=== PATIENT | female | born 1965 | race Caucasian/White ===

== ENCOUNTER 2019-06-25 06:40 | Inpatient (IN) ==
--- NOTE | 2019-05-22 09:28 | PAT Medication Instructions ---
Medication Instructions Date of Service May 22, 2019 Home Medications Probiotic 1 cap PO QPM 05/19/19 [History Confirmed 05/19/19] acetaminophen [Tylenol Extra Strength] 500 mg PO Q6H PRN cyclobenzaprine 1 dose PO DAILY PRN 05/19/19 [History Confirmed 05/19/19] duloxetine 60 mg PO HS 05/19/19 [History Confirmed 05/19/19] etodolac 400 mg PO BID 05/19/19 [History Confirmed 05/19/19] gabapentin 300 mg PO TID 05/19/19 [History Confirmed 05/19/19] losartan-hydrochlorothiazide 1 tab PO QAM 05/19/19 [History Confirmed 05/19/19] pantoprazole 20 mg PO Q OTHER DAY 05/19/19 [History Confirmed 05/19/19] simvastatin 20 mg PO PM 05/19/19 [History Confirmed 05/19/19] ASK your surgeon for instructions etodolac 400 mg PO BID 05/19/19 [History Confirmed 05/19/19] DO NOT take the morning of surgery cyclobenzaprine 1 dose PO DAILY PRN 05/19/19 [History Confirmed 05/19/19] losartan-hydrochlorothiazide 1 tab PO QAM 05/19/19 [History Confirmed 05/19/19] Take morning of surgery With a small sip of water, OTHERWISE NOTHING TO EAT OR DRINK AFTER MIDNIGHT: acetaminophen [Tylenol Extra Strength] 500 mg PO Q6H PRN (okay to take up to 4 hours prior to surgery if needed) gabapentin 300 mg PO TID 05/19/19 [History Confirmed 05/19/19] pantoprazole 20 mg PO Q OTHER DAY (if scheduled to take day of surgery) Take evening before surgery Probiotic 1 cap PO QPM 05/19/19 [History Confirmed 05/19/19] acetaminophen [Tylenol Extra Strength] 500 mg PO Q6H PRN (if needed) cyclobenzaprine 1 dose PO DAILY PRN (if needed) duloxetine 60 mg PO HS 05/19/19 [History Confirmed 05/19/19] gabapentin 300 mg PO TID 05/19/19 [History Confirmed 05/19/19] simvastatin 20 mg PO PM 05/19/19 [History Confirmed 05/19/19] Other Notes If you have any questions please call us at [phone] or [phone] or [phone] or [phone]
--- NOTE | 2019-05-25 11:34 | Anesthesiology Consultation ---
Date of Service May 25, 2019 Assessment & Plan (1) Encounter for pre-operative examination: Chart Review Chart Review: Pending: Refer to Additional Notes / Consult section (pending preop testing (labs, EKG, CXR)) and Patient seen in Pre Admission Testing Teaching & Discussion Pre-Anesthesia Teaching/Discussion Notes: Instructed NPO after midnight before surgery,except medications with 15 cc of water. Medication instructions provi ded according to the PAT guidelines. History Surgery Operation Date: 06/25/19 08:50 Proposed Procedures p Right Total Knee Arthroplasty - Héctor Morillo MD Height/Weight Height: 5 ft 6 in Weight: 112.2 kg Allergies Allergy/AdvReac Type Severity Reaction Status Date / Time latex Allergy Rash Verified 05/19/19 15:42 No Known Drug Allergies Allergy Verified 05/19/19 15:42 Medications Home Medications Medication Instructions Recorded Confirmed Last Taken Probiotic 1 cap PO QPM 05/19/19 05/19/19 Unknown acetaminophen [Tylenol Extra 500 mg PO Q6H PRN 05/19/19 05/19/19 Unknown Strength] cyclobenzaprine 1 dose PO DAILY PRN 05/19/19 05/19/19 Unknown duloxetine 60 mg PO HS 05/19/19 05/19/19 Unknown etodolac 400 mg PO BID 05/19/19 05/19/19 Unknown gabapentin 300 mg PO TID 05/19/19 05/19/19 Unknown losartan-hydrochlorothiazide 1 tab PO QAM 05/19/19 05/19/19 Unknown pantoprazole 20 mg PO Q OTHER DAY 05/19/19 05/19/19 Unknown simvastatin 20 mg PO PM 05/19/19 05/19/19 Unknown Past Medical History Medical History Acid reflux controlled Degenerative disc disease Fibromyalgia History of angiography History of subarachnoid hemorrhage 2001 - no surgery/no residual effects Hyperlipidemia Hypertension Obesity Osteoarthritis Spinal stenosis Urinary leakage mild since childbirth Exercise / Class Metabolic Activity II 4-5 Yardwork/Stairs/Walk up hill (one flight of stairs (no chest pain/no sob)) Past Family History Family History Mother Family history of diabetes mellitus Uncle Family history of diabetes mellitus Past Surgical History Surgical History History of ankle surgery PLASMA INJECTION W/ ANESTHESIA History of appendectomy History of colonoscopy History of esophagogastroduodenoscopy (EGD) History of toe surgery Sebaceous cyst REMOVED Past Anesthesia History No Hx of Anesthesia Complications and No Family Hx of Anesthesia Complications History of PONV No Hx of PONV and Hx of Motion Sickness (occasional) Social History Smoking Status: Never smoker Do You Dip or Chew Tobacco: No Hx Alcohol Use: No Hx Substance Use: No substance use type: does not use Review of Systems Reflux controlled. Patient denies chest pain, shortness of breath, dyspnea on exertion, cough, wheezing, palpitations. Physical Exam Vital Signs VITALS BP 117/79 P 73 TEMP 98.3 SP02 95%RA RESP 16 PHYSICAL Full neck and c-spine range of motion. Full TMJ range of motion. TMD 4 finger breaths Mallampati Score 1 Dentition: lower sides missing, crown on side Lungs: clear throughout to auscultation Cardiac: regular rate and rhythm, no murmurs noted Spine: normal Carotid arteries: negative bruit Extremities: no edema
--- NOTE | 2019-05-25 12:33 | XRay Report ---
TWO VIEW CHEST CLINICAL HISTORY: Preoperative examination. FINDINGS: PA and lateral chest radiographs are obtained. No prior studies are available for compariso n at the time of dictation. The cardiomediastinal silhouette is unremarkable. The lungs and pleural spaces are clear. There is no pneumothorax. The bony thorax appears intact. Degenerative change is n oted in the thoracic spine. IMPRESSION: No active disease in the chest. Electronically signed by: Naveen Ng M.D. 05/25/2019 12:31 PM
[2019-05-25 13:33] LABS: Basophils # (auto) 0.03 K/uL (0-0.2); Basophils % (auto) 0.4 %; Eosinophils # (auto) 0.19 K/uL (0-0.5); Eosinophils % (auto) 2.7 %; Hematocrit (blood only) 38.5 % (37-47); Immature Granulocytes # (auto) 0.01 K/uL (0.00-0.02); Immature Granulocytes % (auto) 0.1 %; Lymphocytes # (auto) 2.01 K/uL (1.2-3.4); Lymphocytes % (auto) 28.8 %; Mean Corpuscular Hemoglobin 28.2 pg (25-34); Mean Corpuscular Hgb Conc 33.8 g/dL (32-36); Mean Corpuscular Volume 83.5 fL (80-100); Mean Platelet Volume 9.4 fL (7.4-10.4); Monocytes # (auto) 0.52 K/uL (0.11-0.59); Monocytes % (auto) 7.5 %; Neutrophils # (auto) 4.21 K/uL (1.4-6.5); Neutrophils % (auto) 60.5 %; Platelet Count 312 K/uL (130-400); RDW Standard Deviation 42.2 fL (36.4-46.3); Red Blood Count 4.61 M/uL (4.2-5.4); White Blood Count 6.97 K/uL (4.8-10.8)
[2019-05-25 13:42] LABS: Albumin Level 3.8 gm/dl (3.4-5.0); BUN Creatinine Ratio 20.2 (10-20); Calcium 9.4 mg/dl (8.5-10.1); Creatinine Clr Calc Pharmacy 123.8 ml/min; Est GFR (African American) 116.1; Est GFR (Non-African American) 100.1; Potassium 3.6 mmol/L (3.5-5.1)
[2019-05-25 13:47] LABS: Partial Thromboplastin Ratio 1.2; Prothrombin Time 10.2 Seconds (9.0-12.0)
[2019-05-25 13:48] LABS: Estimated Average Glucose 134 mg/dl; Hemoglobin A1C 6.3 % (4.5-5.6)
[2019-05-25 13:54] LABS: Appearance Urine Clear (Clear); Blood Urine Negative (Negative); Color Urine Yellow; Glucose Urine UA Negative (Negative); Ketones Urine Negative (Negative); Leukocyte Esterase Urine Negative (Negative); Nitrite Urine Negative (Negative); Protein Urine Negative (Negative); Specific Gravity Urine <= 1.005 (1.000-1.030); Urobilinogen Urine Negative (Negative); pH Urine 5.5 (4.5-7.5)
[2019-05-25 14:00] LABS: Bilirubin Urine Negative (Negative); Ictotest Urine Negative (Negative)
--- NOTE | 2019-05-31 18:52 | History & Physical Report ---
Date of Service May 31, 2019 Assessment & Plan (1) Primary osteoarthritis of right knee: Treatment options were discussed. She was able to get BMI down below 40. She has failed conservative measures as above. Risks, benefits and alternatives to surgery including but not limited to infection, DVT, pain, stiffness, need for revision surgery, damage to blood vessels, damage to nerves, PE, , were discussed with the patient and they wish to proceed. Plan will be for right total knee arthroplasty on 06/25/19 at [facility]. Will plan on aspirin 81mg BID x 1 mo post op for DVT prophylaxis. She will plan on HHPT. All questions answered. F/u post operatively. History of Present Illness Primary Care Provider: Kyung CasillasFausto Nakia 54 year old female with PMHx significant for HTN, high cholesterol, obesity, subarachnoid hemorrhage, OA, fibromyalgia presents with ongoing right knee pain. She has failed conservative measures including injections and anti-inflammatory medications. She continues to have pain and difficulty with daily activity. She would like to proceed with right knee replacement. Patient denies headaches, sweats, fevers, chills, double vision, blurred vision, cough, sore throat, dysphagia, chest pain, sob, wheezing, n/v/d/c, numbness, tingling, fatigue, urinary symptoms, mood disorders. ROS positive for right knee pain and stiffness. Allergies Allergy/AdvReac Type Severity Reaction Status Date / Time latex Allergy Rash Verified 05/19/19 15:42 No Known Drug Allergies Allergy Verified 05/19/19 15:42 Home Medications Home Medications Medication Instructions Recorded Confirmed Type Probiotic 1 cap PO QPM 05/19/19 05/19/19 History acetaminophen [Tylenol Extra 500 mg PO Q6H PRN 05/19/19 05/19/19 History Strength] cyclobenzaprine 1 dose PO DAILY PRN 05/19/19 05/19/19 History duloxetine 60 mg PO HS 05/19/19 05/19/19 History etodolac 400 mg PO BID 05/19/19 05/19/19 History gabapentin 300 mg PO TID 05/19/19 05/19/19 History losartan-hydrochlorothiazide 1 tab PO QAM 05/19/19 05/19/19 History pantoprazole 20 mg PO Q OTHER DAY 05/19/19 05/19/19 History simvastatin 20 mg PO PM 05/19/19 05/19/19 History Past Med/Surg History Medical History Acid reflux controlled Degenerative disc disease Fibromyalgia History of angiography History of subarachnoid hemorrhage 2001 - no surgery/no residual effects Hyperlipidemia Hypertension Obesity Osteoarthritis Spinal stenosis Urinary leakage mild since childbirth Surgical History History of ankle surgery PLASMA INJECTION W/ ANESTHESIA History of appendectomy History of colonoscopy History of esophagogastroduodenoscopy (EGD) History of toe surgery Sebaceous cyst REMOVED Family History Mother Family history of diabetes mellitus Uncle Family history of diabetes mellitus Social History Preferred Language: [place]uran Communication Ability: Effective Escalator Operator Required: No Beliefs That Will Affect Care: None Current Living Situation: Spouse Other Information That Helps Us Care for You: No Feels Safe at Home: Yes Safety Concerns: Feels Safe At This Time Smoking Status: Never smoker Do You Dip or Chew Tobacco: No ; Second Hand Exposure: Yes ( A CHILD) ; Hx Alcohol Use: No Hx Substance Use: No Review of Systems All systems reviewed & are unremarkable except as noted in HPI & below Physical Exam Constitutional: well developed and well nourished; no acute distress Eyes: PERRL, conjunctivae normal, anicteric sclerae ENMT: external ear and nose normal, oropharynx normal Neck: trachea midline, no thyromegaly Respiratory: normal respiratory effort, lungs clear to auscultation Cardiovascular: RRR, no murmur, no edema Musculoskeletal: Right knee: Tenderness anteromedial aspect and medial joint line. Crepitus with ROM. ROM 0-130. Stable to valgus and varus stress. Positive Elise's Skin: no rashes, warm and dry Neurologic: patellar DTR's 2+ bilat, sensation intact Psychiatric: A+Ox3, euthymic affect Results & Data Laboratory Results Lab Results 05/25/19 05/25/19 05/25/19 Range/Units 11:53 11:53 11:53 WBC 6.97 (4.8-10.8) K/uL RBC 4.61 (4.2-5.4) M/uL Hgb 13.0 (12.0-16.0) g/dL Hct 38.5 (37-47) % MCV 83.5 (80-100) fL MCH 28.2 (25-34) pg MCHC 33.8 (32-36) g/dL RDW Std Deviation 42.2 (36.4-46.3) fL RDW Coeff of [place] 14.0 (11.5-14.5) % Plt Count 312 (130-400) K/uL MPV 9.4 (7.4-10.4) fL Immature Gran % (Auto) 0.1 % Neut % (Auto) 60.5 % Lymph % (Auto) 28.8 % [place] % (Auto) 7.5 % Eos % (Auto) 2.7 % Baso % (Auto) 0.4 % Immature Gran # (Auto) 0.01 (0.00-0.02) K/uL Neut # (Auto) 4.21 (1.4-6.5) K/uL Lymph # (Auto) 2.01 (1.2-3.4) K/uL [place] # (Auto) 0.52 (0.11-0.59) K/uL Eos # (Auto) 0.19 (0-0.5) K/uL Baso # (Auto) 0.03 (0-0.2) K/uL PT (9.0-12.0) Seconds INR (0.9-1.1) APTT (21.0-31.0) Seconds PTT Ratio Sodium 138 (136-145) mmol/L Potassium 3.6 (3.5-5.1) mmol/L Chloride 105 (98-107) mmol/L Carbon Dioxide 25 (21-32) mmol/L Anion Gap 8.0 (3-11) BUN 13 (7-18) mg/dl Creatinine 0.66 (0.6-1.2) mg/dl Est Cr Clr Drug Dosing 123.8 ml/min Est GFR ( Amer) 116.1 Est GFR (Non-Af Amer) 100.1 BUN/Creatinine Ratio 20.2 H (10-20) Glucose 95 (70-99) mg/dl Estimat Average Glucose mg/dl Hemoglobin A1c (4.5-5.6) % Calcium 9.4 (8.5-10.1) mg/dl Albumin 3.8 (3.4-5.0) gm/dl Urine Color Yellow Urine Appearance Clear (Clear) Urine pH 5.5 (4.5-7.5) Ur Specific [place] <= 1.005 (1.000-1.030) Urine Protein Negative (Negative) Urine Glucose (UA) Negative (Negative) Urine Ketones Negative (Negative) Urine Blood Negative (Negative) Urine Nitrite Negative (Negative) Urine Bilirubin Negative (Negative) Urine Urobilinogen Negative (Negative) Ur Leukocyte Esterase Negative (Negative) Blood Type Antibody Screen 05/25/19 05/25/19 05/25/19 Range/Units 11:53 11:53 11:53 WBC (4.8-10.8) K/uL RBC (4.2-5.4) M/uL Hgb (12.0-16.0) g/dL Hct (37-47) % MCV (80-100) fL MCH (25-34) pg MCHC (32-36) g/dL RDW Std Deviation (36.4-46.3) fL RDW Coeff of [place] (11.5-14.5) % Plt Count (130-400) K/uL MPV (7.4-10.4) fL Immature Gran % (Auto) % Neut % (Auto) % Lymph % (Auto) % [place] % (Auto) % Eos % (Auto) % Baso % (Auto) % Immature Gran # (Auto) (0.00-0.02) K/uL Neut # (Auto) (1.4-6.5) K/uL Lymph # (Auto) (1.2-3.4) K/uL [place] # (Auto) (0.11-0.59) K/uL Eos # (Auto) (0-0.5) K/uL Baso # (Auto) (0-0.2) K/uL PT 10.2 (9.0-12.0) Seconds INR 1.0 (0.9-1.1) APTT 32.0 H (21.0-31.0) Seconds PTT Ratio 1.2 Sodium (136-145) mmol/L Potassium (3.5-5.1) mmol/L Chloride (98-107) mmol/L Carbon Dioxide (21-32) mmol/L Anion Gap (3-11) BUN (7-18) mg/dl Creatinine (0.6-1.2) mg/dl Est Cr Clr Drug Dosing ml/min Est GFR ( Amer) Est GFR (Non-Af Amer) BUN/Creatinine Ratio (10-20) Glucose (70-99) mg/dl Estimat Average Glucose 134 mg/dl Hemoglobin A1c 6.3 H (4.5-5.6) % Calcium (8.5-10.1) mg/dl Albumin (3.4-5.0) gm/dl Urine Color Urine Appearance (Clear) Urine pH (4.5-7.5) Ur Specific [place] (1.000-1.030) Urine Protein (Negative) Urine Glucose (UA) (Negative) Urine Ketones (Negative) Urine Blood (Negative) Urine Nitrite (Negative) Urine Bilirubin (Negative) Urine Urobilinogen (Negative) Ur Leukocyte Esterase (Negative) Blood Type AB Positive Antibody Screen NEGATIVE Diagnostic Findings Right knee: [id number] PF compartment with arthritic change medially and laterally with periarticular osteophyte formation
--- NOTE | 2019-06-23 12:47 | Anesthesiology Consultation ---
Date of Service June 23, 2019 Assessment & Plan (1) Encounter for pre-operative examination: Chart Review Chart Review: Acceptable Risk for Surgery Consults Requested none History Surgery Operation Date: 06/25/19 08:30 Proposed Procedures p Right Total Knee Arthroplasty - Héctor Morillo MD Height/Weight Height: 5 ft 6 in Weight: 112.2 kg Allergies Allergy/AdvReac Type Severity Reaction Status Date / Time latex Allergy Rash Verified 05/19/19 15:42 No Known Drug Allergies Allergy Verified 05/19/19 15:42 Medications Home Medications Medication Instructions Recorded Confirmed Last Taken Probiotic 1 cap PO QPM 05/19/19 05/19/19 Unknown acetaminophen [Tylenol Extra 500 mg PO Q6H PRN 05/19/19 05/19/19 Unknown Strength] cyclobenzaprine 1 dose PO DAILY PRN 05/19/19 05/19/19 Unknown duloxetine 60 mg PO HS 05/19/19 05/19/19 Unknown etodolac 400 mg PO BID 05/19/19 05/19/19 Unknown gabapentin 300 mg PO TID 05/19/19 05/19/19 Unknown losartan-hydrochlorothiazide 1 tab PO QAM 05/19/19 05/19/19 Unknown pantoprazole 20 mg PO Q OTHER DAY 05/19/19 05/19/19 Unknown simvastatin 20 mg PO PM 05/19/19 05/19/19 Unknown Past Medical History Medical History Acid reflux controlled Degenerative disc disease Fibromyalgia History of angiography History of subarachnoid hemorrhage 2001 - no surgery/no residual effects Hyperlipidemia Hypertension Obesity Osteoarthritis Spinal stenosis Urinary leakage mild since childbirth Past Family History Family History Mother Family history of diabetes mellitus Uncle Family history of diabetes mellitus Past Surgical History Surgical History History of ankle surgery PLASMA INJECTION W/ ANESTHESIA History of appendectomy History of colonoscopy History of esophagogastroduodenoscopy (EGD) History of toe surgery Sebaceous cyst REMOVED Social History Smoking Status: Never smoker Do You Dip or Chew Tobacco: No Hx Alcohol Use: No Hx Substance Use: No substance use type: does not use Testing Laboratory Results 05/25/19 11:53 05/25/19 11:53 PT 10.2 Seconds (9.0-12.0) 05/25/19 11:53 INR 1.0 (0.9-1.1) 05/25/19 11:53 APTT 32.0 Seconds (21.0-31.0) H 05/25/19 11:53 Hemoglobin A1c 6.3 % (4.5-5.6) H 05/25/19 11:53 Urine Color Yellow 05/25/19 11:53 Urine Appearance Clear (Clear) 05/25/19 11:53 Urine pH 5.5 (4.5-7.5) 05/25/19 11:53 Ur Specific [place] <= 1.005 (1.000-1.030) 05/25/19 11:53 Urine Protein Negative (Negative) 05/25/19 11:53 Urine Glucose (UA) Negative (Negative) 05/25/19 11:53 Urine Ketones Negative (Negative) 05/25/19 11:53 Urine Nitrite Negative (Negative) 05/25/19 11:53 Ur Leukocyte Esterase Negative (Negative) 05/25/19 11:53 Blood Type AB Positive 05/25/19 11:53 Antibody Screen NEGATIVE 05/25/19 11:53 05/25/19 11:53 Urine Culture - Final Urine,Clean Catch More than three types of organisms present, all high counts mixed probable skin emily - No further identifications or sensitivities to follow. Electrocardiogram Date: 05/25/19 Findings: + NSR @ (78/min) Chest X-Ray Date: 05/25/19 Findings: + NAD
[~2019-06-25 06:40] MED LIST: ACETAMINOPHEN 500 MG TAB PO SCH; BUPIVACAINE 0.5 % 5 MG/1 ML PF 10ML VIAL ONE; CEFAZOLIN 2000MG 2,000 MG/15 ML SYR IV SCH; CeleBREX 200 MG CAP PO SCH; FAMOTIDINE 20 MG TAB PO SCH; GABAPENTIN 900 MG DOSE PO SCH; LR 500ML BOLUS, THEN 15ML/HR IV SCH; MISSING PHYSICIAN SIGNATURE ON ORDER SCH; ROPIVACAINE 0.5% 5 MG/ML 30 ML VIAL ONE; TRANEXAMIC ACID 1,000 MG **IV Intra-op IV SCH; TRANEXAMIC ACID 1,000 MG **IV Pre-op IV SCH; dexAMETHasone 4 MG TAB PO SCH
--- NOTE | 2019-06-25 06:54 | History & Physical Bridge Note ---
Date of Service June 25, 2019 History & Physical Bridge Note I have examined the patient, reviewed the History & Physical and in the interval since the performance of the History & Physical I have noted the following changes of clinical significance: no changes noted
[2019-06-25] MEDS ORDERED: MIDAZOLAM HCL 1 MG/ML 2ML VIAL ONE ×3 (06:56→08:32)
[2019-06-25] MEDS ORDERED: PROPOFOL IV EMULSION 10 MG/ML 20 ML VIAL IV ONE ×3 (06:56→09:39)
[2019-06-25] MEDS ORDERED: fentaNYL citrate 100 MCG/2 ML VIAL ONE (06:56)
[2019-06-25] MEDS ORDERED: LIDOCAINE HCL 2% 2 ML VIAL/AMP(20MG/ML) INFIL ONE (06:56)
[2019-06-25] MEDS ORDERED: ONDANSETRON INJ 2 MG/ML 2 ML VIAL ONE (06:56)
[2019-06-25] MEDS ORDERED: BACITRACIN INJ 50,000 UNIT VIAL ONE (07:17)
[2019-06-25] MEDS ORDERED: ORTHO JOINT ANESTHETIC ONE (07:17)
[2019-06-25] MEDS ORDERED: HYDROmorphone INJ 2 MG/ML SYR/VIAL IV PRN (08:12)
[2019-06-25] MEDS ORDERED: ePHEDrine sulfate 50 MG/ML AMP IV PRN (08:12)
[2019-06-25] MEDS ORDERED: ATROPINE SULFATE 0.1 MG/ML 10ML SYR IV PRN (08:12)
[2019-06-25] MEDS ORDERED: fentaNYL citrate 100 MCG/2 ML VIAL IV PRN (08:12)
[2019-06-25] MEDS ORDERED: ROPIVACAINE 0.5% HCL/PF 150 MG, BUPIVACAINE 0.5% MPF 30 ML, EPINEPHrine 30MG/30ML (OR U... INFIL SCH (08:45)
--- NOTE | 2019-06-25 10:12 | Operative Report ---
Post Operative Report Pre & Post Diagnosis Operation Date: 06/25/19 08:30 Pre-Op Diagnosis: Right Knee Unilateral Primary Osteoarthritis Post-Op Diagnosis: Right Knee Unilateral Primary Osteoarthritis I identified the patient and participated in the time-out.: Yes Procedure Operation Date: 06/25/19 08:30 Actual Procedures p Right Total Knee Arthroplasty(Right) - Héctor Morillo MD Surgeon Héctor Morillo MD Mixing Picker Tender Stephen Momin PA-C Estimated Blood Loss 20 Findings Consistent with Post-Op Diagnosis Specimens Bone and tissue Drains 2 Hemovac Anesthesia Type MAC Spinal Regional Complications none Disposition Accompanied Patient To Recovery: No Disposition: Recovery Room Indications The patient is a 54-year-old female longstanding arthritic change in the knee. She has [id number] patellofemoral compartment with significant joint space narrowing the medial compartment. She is failed conservative measures including injection, anti-inflammatories and rehab. She wishes to proceed with a right total knee arthroplasty. Description of Procedure Risks benefits and alternatives of surgery including but not limited to infection, DVT, pain, stiffness, need for surgery, damage to blood vessels, damage to nerves or risks of anesthesia were discussed with the patient and they wished to proceed. The patient was identified and the laterality was confirmed and marked. They received a preoperative antibiotic as well as a spinal anesthetic and an abductor canal block. A well-padded tourniquet was applied and then the limb was prepped and draped in standard manner with ChloraPrep. The limb was exsanguinated and the tourniquet was inflated. I made a standard anterior incision. I sharply incised the skin then utilized Bovie electrocautery to achieve hemostasis. I made a medial parapatellar arthrotomy and mobilized the patella laterally. I then excised the anterior horns of the medial and lateral meniscus as well as the infrapatellar fat pad. I elevated a portion of the MCL off of the tibia. I then pinned into place a patient-matched distal femoral cutting guide and made my distal femoral resection. I then pinned into place the 5 in 1 femoral cutting guide. I made my anterior, posterior and chamfer cuts. I then excised the cruciates and the remaining portions of the menisci. I then pinned into place a patient- matched tibial cutting guide and made my tibial resection. I then pinned into place the tibial plate a utilizing alignment andriy to confirm rotation. I then cut for the post. Utilizing a lamina dietetic intern and I then removed posterior osteophytes off the femur. I then placed a trial femur into position and cut for the trochlear component. I then sequentially trialed to size the polyethylene until there was good soft tissue balancing and range of motion. I then prepared the patella with a freehand cut utilizing sagittal saw. I sized and drilled for the patella. There was good tracking to the patella no lateral release was needed. All the trial components were removed. The deep tissues were anesthetized with an ortho mix solution. Then with Simplex HV with gentamicin cement, I cemented my definitive components. Definitive components, Brown and Nephew [place] 2: Femur 3 Tibia 2 Poly 11 Patella 29 oval A betadine soak was performed. A deep drain was placed. The arthrotomy was closed with interrupted #1 Vicryl suture subcutaneous tissue was closed with interrupted 2-0 Vicryl suture. The skin was closed with with moon. An Acticoat and Samantha dressing were placed. Sterile dressings were applied. All needle and sponge counts were correct at the end of the procedure patient was transferred to the PACU in stable condition without apparent complication. The PA-C was necessary for assistance with procedure for assistance in positioning, prepping, draping, retraction and closure. I attest to the content of the Intraoperative Record and any orders documented therein. Any exceptions are noted below.
--- NOTE | 2019-06-25 11:04 | XRay Report ---
XR knee RT 1 or 2V routine HISTORY: 54 years-old Female Surgical Post Op right hip total joint arthroplasty. COMPARISON: None available TECHNIQUE: 2 views of the right knee FINDINGS: Right knee total joint arthroplasty and patella resurfacing. Satisfactory alignment without acute fra cture, dislocation or opaque foreign body. Anterior midline skin moon are noted along with expecte d postsurgical soft tissue swelling and deep tissue air with surgical drainage catheter. A battery pa ck projects over the anterior soft tissues. IMPRESSION: Satisfactory alignment of the right knee total joint arthroplasty. ACT 112: Negative or not required by law. The above report was generated using voice recognition software. It may contain grammatical, syntax o r spelling errors. Electronically signed by: Nestor Hairston M.D. 06/25/2019 11:03 AM
--- NOTE | 2019-06-25 11:34 | Anesthesiology Progress Note ---
Date of Service June 25, 2019 Anesthesia Post Procedure Vital Signs Vital Signs: Temp Pulse Pulse Resp BP Pulse Ox 06/25/19 11:10 36.8 C 81 16 141/77 H 93 06/25/19 11:00 79 16 140/84 94 06/25/19 10:50 82 18 130/77 94 06/25/19 10:42 36.6 C 88 18 143/81 H 95 06/25/19 07:18 36.8 C 90 20 156/108 H 97 Pain Intensity Right Knee: Pain Intensity: 6 Transfer of Care Handoff Completed per policy Notes Mental Status: alert / awake / arousable and participated in evaluation Patient Amnestic to Procedure: Yes Nausea / Vomiting: adequately controlled Pain: adequately controlled Airway Patency, RR, SpO2: stable & adequate BP & HR: stable & adequate Hydration State: stable & adequate Neuraxial Anesthesia: was administered and sensory block is resolving Anesthetic Complications: no major complications apparent
[2019-06-25] MEDS ORDERED: HYDROmorphone INJ 0.5 MG/0.5 ML SYR IV PRN (11:52)
[2019-06-25] MEDS ORDERED: NALOXONE HCL 0.4 MG/1 ML VIAL/CARP IV PRN (11:52)
[2019-06-25] MEDS ORDERED: MAGNESIUM HYDROXIDE SUSP 30 ML UDC PO PRN (11:52)
[2019-06-25] MEDS ORDERED: ONDANSETRON INJ 2 MG/ML 2 ML VIAL IV PRN (11:52)
[2019-06-25] MEDS ORDERED: bisacodyL 10 MG SUPP PR PRN (11:52)
[2019-06-25] MEDS: SODIUM CHLORIDE 0.9% 1000ML 1,000 ML IV SCH ×2 (13:06→21:15)
[2019-06-25] MEDS: GABAPENTIN 300 MG CAP PO SCH ×2 (14:33→20:09)
[2019-06-25] MEDS: ACETAMINOPHEN 500 MG TAB PO SCH ×2 (14:33→21:15)
[2019-06-25] MEDS: OXYCODONE HCL IR 5 MG TAB (IMMEDIATE RELEASE) PO PRN ×2 (14:35→20:19)
[2019-06-25] MEDS: CEFAZOLIN 2000MG 2,000 MG/15 ML SYR IV SCH ×2 (16:37→23:31)
[2019-06-25] MEDS: FERROUS GLUCONATE 324 MG TAB PO SCH (18:03)
[2019-06-25] MEDS: ASPIRIN 81 MG ECTAB PO SCH (20:09)
[2019-06-25] MEDS: SIMVASTATIN 20 MG TAB PO SCH (20:09)
[2019-06-25] MEDS: SENNA 8.6 MG TAB PO SCH (20:09)
[2019-06-25] MEDS: LACTOBACILLUS ACIDOPHILUS (FLORANEX) TAB PO SCH (20:09)
[2019-06-25] MEDS: DOCUSATE SODIUM 100 MG CAP PO SCH (20:09)
[2019-06-25] MEDS: DULOXETINE HCL 60 MG CAP PO SCH (20:09)
[2019-06-26] MEDS: OXYCODONE HCL IR 5 MG TAB (IMMEDIATE RELEASE) PO PRN ×5 (02:24→21:57)
[2019-06-26] MEDS: ACETAMINOPHEN 500 MG TAB PO SCH ×3 (06:00→21:58)
[2019-06-26 06:28] LABS: Hematocrit (blood only) 34.5 % (37-47); Hemoglobin 11.2 g/dL (12.0-16.0); Mean Corpuscular Hemoglobin 27.9 pg (25-34); Mean Corpuscular Hgb Conc 32.5 g/dL (32-36); Mean Platelet Volume 8.9 fL (7.4-10.4); Platelet Count 299 K/uL (130-400); RDW Coefficient of Variation 13.8 % (11.5-14.5); RDW Standard Deviation 43.9 fL (36.4-46.3); Red Blood Count 4.01 M/uL (4.2-5.4); White Blood Count 14.22 K/uL (4.8-10.8)
[2019-06-26 06:50] LABS: BUN Creatinine Ratio 20.1 (10-20); Calcium 8.7 mg/dl (8.5-10.1); Creatinine Clr Calc Pharmacy 102.9 ml/min; Est GFR (African American) 98.4; Est GFR (Non-African American) 84.9
--- NOTE | 2019-06-26 07:22 | Orthopedic Progress Note ---
Date of Service June 26, 2019 Assessment & Plan (1) S/P total knee arthroplasty: POD#1 Right TKA -Pain management -PT/OT -DVT prophylaxis-TEDs, SCDs, ASA 81mg BID -D/C planning-home with HHPT when stable, likely tomorrow. -AM labs-Hgb at 11.2 today from 13 preop. Subjective POD#1 right TKA. Doing well overall however having some increased pain today. No other complaints at this time. Denies chest pain, sob, dizziness, n/v/d. Review of Systems Review of Systems: All systems reviewed & are unremarkable except as noted in HPI & below Physical Exam Physical Exam: Right knee dressing c/d/i, no calf tenderness, toes mobile, good dorsiflexion. Hemovac in place. Distlally n/v status and sensation intact. Constitutional: well developed and well nourished; no acute distress Results & Data Vital Signs (Past 12 Hours) Vital Signs Temp Pulse Pulse Resp BP BP Pulse Ox 06/26/19 03:07 36.7 C 92 H 16 125/69 95 06/25/19 23:16 36.5 C 99 H 16 135/76 95 06/25/19 20:28 36.4 C L 84 16 115/72 96 Laboratory Results H & H 05/25/19 06/26/19 Range/Units 11:53 06:06 Hgb 13.0 11.2 L (12.0-16.0) g/dL Hct 38.5 34.5 L (37-47) % Coagulation 05/25/19 Range/Units 11:53 INR 1.0 (0.9-1.1)
--- NOTE | 2019-06-26 07:50 | Anesthesiology Progress Note ---
Date of Service June 26, 2019 Anesthesia Post Procedure Vital Signs Vital Signs: Temp Pulse Pulse Pulse Resp BP BP 06/26/19 07:47 36.4 C L 85 18 152/80 H 06/26/19 03:07 36.7 C 92 H 16 125/69 06/25/19 23:16 36.5 C 99 H 16 135/76 06/25/19 20:28 36.4 C L 84 16 115/72 06/25/19 15:17 36.8 C 98 H 16 146/84 H 139/72 06/25/19 14:30 36.8 C 91 H 18 125/78 06/25/19 13:29 36.6 C 89 18 130/76 06/25/19 12:35 88 18 133/85 06/25/19 12:00 36.5 C 79 18 141/82 H 06/25/19 11:30 36.6 C 90 18 148/87 H 06/25/19 11:10 36.8 C 81 16 141/77 H 06/25/19 11:00 79 16 140/84 06/25/19 10:50 82 18 130/77 06/25/19 10:42 36.6 C 88 18 143/81 H Pulse Ox 06/26/19 07:47 95 06/26/19 03:07 95 06/25/19 23:16 95 06/25/19 20:28 96 06/25/19 15:17 95 06/25/19 14:30 94 06/25/19 13:29 96 06/25/19 12:35 99 06/25/19 12:00 96 06/25/19 11:30 99 06/25/19 11:10 93 06/25/19 11:00 94 06/25/19 10:50 94 06/25/19 10:42 95 Pain Intensity Right Knee: Pain Intensity: 5 Notes Mental Status: alert / awake / arousable and participated in evaluation Patient Amnestic to Procedure: Yes Nausea / Vomiting: adequately controlled Pain: adequately controlled Airway Patency, RR, SpO2: stable & adequate BP & HR: stable & adequate Hydration State: stable & adequate Neuraxial Anesthesia: was administered and sensory block resolved Anesthetic Complications: no major complications apparent
[2019-06-26] MEDS: FERROUS GLUCONATE 324 MG TAB PO SCH ×2 (08:27→18:02)
[2019-06-26] MEDS: ASPIRIN 81 MG ECTAB PO SCH ×2 (08:28→21:57)
[2019-06-26] MEDS: LOSARTAN/HCTZ 50/12.5MG TAB PO SCH (08:28)
[2019-06-26] MEDS: MULTIVITAMIN TAB PO SCH (08:28)
[2019-06-26] MEDS: DOCUSATE SODIUM 100 MG CAP PO SCH ×2 (08:28→21:58)
[2019-06-26] MEDS: GABAPENTIN 300 MG CAP PO SCH ×3 (08:29→21:57)
[2019-06-26] MEDS: CHOLECALCIFEROL 1,000 UNITS TAB PO SCH (08:29)
[2019-06-26] MEDS ORDERED: PANTOprazole 40 MG TAB PO SCH (09:00)
[2019-06-26] MEDS: LACTOBACILLUS ACIDOPHILUS (FLORANEX) TAB PO SCH (21:57)
[2019-06-26] MEDS: SENNA 8.6 MG TAB PO SCH (21:57)
[2019-06-26] MEDS: SIMVASTATIN 20 MG TAB PO SCH (21:57)
[2019-06-26] MEDS: DULOXETINE HCL 60 MG CAP PO SCH (21:58)
[2019-06-27] MEDS: OXYCODONE HCL IR 5 MG TAB (IMMEDIATE RELEASE) PO PRN ×3 (05:27→14:31)
[2019-06-27] MEDS: ACETAMINOPHEN 500 MG TAB PO SCH ×2 (06:13→13:45)
[2019-06-27] MEDS: FERROUS GLUCONATE 324 MG TAB PO SCH (08:38)
[2019-06-27] MEDS: ASPIRIN 81 MG ECTAB PO SCH (08:38)
[2019-06-27] MEDS: DOCUSATE SODIUM 100 MG CAP PO SCH (08:38)
[2019-06-27] MEDS: GABAPENTIN 300 MG CAP PO SCH ×2 (08:39→13:45)
[2019-06-27] MEDS: MULTIVITAMIN TAB PO SCH (08:39)
[2019-06-27] MEDS: LOSARTAN/HCTZ 50/12.5MG TAB PO SCH (08:39)
[2019-06-27] MEDS: CHOLECALCIFEROL 1,000 UNITS TAB PO SCH (08:39)
--- NOTE | 2019-06-27 08:53 | Orthopedic Progress Note ---
Date of Service June 27, 2019 Assessment & Plan (1) S/P total knee arthroplasty: POD#2 Right TKA -Pain management -PT/OT -DVT prophylaxis-TEDs, SCDs, ASA 81mg BID -D/C planning-home with HHPT today Subjective POD#2 right TKA. Doing well overall. Pain controlled. No other complaints at this time. Denies chest pain, sob, dizziness, n/v/d. Physical Exam Constitutional: WD/WN, vitals as above no acute distress Musculoskeletal: Knee: + surgical incision (right knee: MARCO dressing in place and functioning.); knee normal to inspection, no deformity, no skin erythema, no ecchymosis, no surgical drain present, no valgus alignment and no varus alignment Neurologic: normal touch/pain/proprioception Psychiatric: A+Ox3, euthymic affect Speech: normal rate/rhythm/volume of speech Results & Data Vital Signs (Past 12 Hours) Vital Signs Temp Pulse Resp BP Pulse Ox 06/27/19 07:19 36.7 C 87 16 168/90 H 96 06/26/19 23:25 36.8 C 97 H 16 148/80 H 96
--- NOTE | 2019-07-06 12:25 | Discharge Summary ---
Date of Service July 06, 2019 Admission HPI Per Admitting Provider 54 year old female with PMHx significant for HTN, high cholesterol, obesity, subarachnoid hemorrhage, OA, fibromyalgia presents with ongoing right knee pain. She has failed conservative measures including injections and anti-inflammatory medications. She continues to have pain and difficulty with daily activity. She would like to proceed with right knee replacement. Patient denies headaches, sweats, fevers, chills, double vision, blurred vision, cough, sore throat, dysphagia, chest pain, sob, wheezing, n/v/d/c, numbness, tingling, fatigue, urinary symptoms, mood disorders. ROS positive for right knee pain and stiffness. Admission Exam Per Admitting Provider Physical Exam Constitutional: well developed and well nourished; no acute distress Eyes: PERRL, conjunctivae normal, anicteric sclerae ENMT: external ear and nose normal, oropharynx normal Neck: trachea midline, no thyromegaly Respiratory: normal respiratory effort, lungs clear to auscultation Cardiovascular: RRR, no murmur, no edema Musculoskeletal: Right knee: Tenderness anteromedial aspect and medial joint line. Crepitus with ROM. ROM 0-130. Stable to valgus and varus stress. Positive Elise's Skin: no rashes, warm and dry Neurologic: patellar DTR's 2+ bilat, sensation intact Psychiatric: A+Ox3, euthymic affect Principal Diagnosis DJD right knee Discharge Exam Physical Exam Constitutional: WD/WN, vitals as above no acute distress Musculoskeletal: Knee: + surgical incision (right knee: MARCO dressing in place and functioning.); knee normal to inspection, no deformity, no skin erythema, no ecchymosis, no surgical drain present, no valgus alignment and no varus alignment Neurologic: normal touch/pain/proprioception Psychiatric: A+Ox3, euthymic affect Speech: normal rate/rhythm/volume of speech Discharge Data Allergies Allergy/AdvReac Type Severity Reaction Status Date / Time latex Allergy Rash Verified 06/25/19 07:10 No Known Drug Allergies Allergy Verified 06/25/19 07:10 Consultations 06/25/19 11:52 Consult Case Management - Discharge Planning Routine Procedures Performed Operation Date: 06/25/19 08:30 Actual Procedures p Right Total Knee Arthroplasty(Right) - Héctor Morillo MD Ordered Studies 06/25/19 05:00 US - OR guided needle [facility] Urgent Hospital Course (1) Primary osteoarthritis of right knee: Patient was admitted on the above-noted date and had the above-noted surgery performed which she tolerated well. On her first postoperative day, she was doing well overall but was having some increased pain that day. He had no complaints at the time. Denies shortness of breath chest pain or lightheadedness. Dressings were clean, dry, and intact. Toes are mobile. Neurovascular was intact. Toes were mobile. Vital signs were stable and she is afebrile. Hemoglobin was 11.2. She was started on PT and OT protocols and continued on DVT prophylaxis and pain management. Plans were for home health services upon discharge. By her second postoperative day, she was continuing to do well. Pain was controlled. She had no other complaints. Marco dressing was intact and functioning. No overt erythema or ecchymosis. Neurologically intact. She was progressing well with physical therapy and remaining stable and was felt she could be discharged home with home health services. Total Time Total Time Spent Total Time Spent (In Minutes): 5 Discharge Plan Discharge Items Patient Disposition: Home - Home Health Services Reason For Visit: Right Knee Osteoarthritis Discharge Diagnosis: right knee osteoarthritis Activity: Per Instructions section Non-emergency contact: Surgeon Call non-emergency contact if: your pain is not controlled, your pain is worsening and your temperature is above 101 Follow-up/Referrals: Kyung Yee D.O. [Primary Care Provider] - Diet: Regular Addtl Attending Provider Instructions: ACTIVITY RECOMMENDATIONS: SELF CARE INSTRUCTIONS AFTER TOTAL KNEE REPLACEMENT A. You may need to continue a physical therapy program after discharge from the hospital. There are several options available to you. Your doctor will assist you in selecting the best one for you. 1. An out-patient facility 3 times a week for therapy. 2. Home therapy for 1 to 2 weeks with outpatient therapy to follow. 3. Continue working on all exercises taught by physical therapy three times a day for 20 minutes on non-therapy days. Your goals should be to increase the bending of your knee to 90 degrees and beyond and to fully straighten your knee. Ice and elevate knee after exercise. B. Weight as tolerated with a walker or as instructed by your physician. C. It is okay to shower if minimal to no drainage from incision. No Baths. Do not soak wound. D. Make walking a part of your daily routine. Be up as much as comfortable with rest periods throughout the day. Rest with leg elevation is very important. Use the ice wrap frequently for the first 3-4 weeks. E. There are no restrictions on activities. You may ride in a car, shop, participate in survey field technician and all social activities. F. Wear the long elastic stockings (CASA hose) 20 hours a day for one month after surgery. They can be removed several times a day for laundering and when showering. G. MARCO dressing: You have a MARCO dressing on your surgical wound. It will remain in place for 7 days from surgery. You will be provided with a booklet with the do's and don'ts with the dressing in place. After 7 days, the dressing may be removed. If there is drainage from the surgical incision, you may cover the wound with dry dressings SPECIAL CARE INSTRUCTIONS: VERY IMPORTANT TO READ AND REVIEW A. Take Aspirin (blood thinning medications) as directed by your doctor. If on Coumadin, have a pro-time (blood test) drawn according to your doctor's instructions. This will tell the doctor how well the Coumadin is thinning your blood. B. There are a few signs you need to watch for after you are home. Call [facility] if you notice any of the followin. Increased severe knee pain. Some pain is expected especially when you exercise. 2. Increased swelling in your leg or knee; pain or swelling of the calf muscle in either lower leg. 3. Any redness or fluid drainage from the incision. 4. Shortness of breath or chest pain. 5. A Temperature of 101 degrees F or greater. C. Please call [facility] at if you have any concerns or questions about your operation or recovery. The doctor or his nurse will return your call promptly. D. You must take antibiotics before dental work, bladder, bowel or other surgery. Your doctor will provide you with a permanent care to carry describing this precaution. FOLLOW UP VISIT: If appointment is not already scheduled: Please call [facility] to make a follow-up appointment for 2 weeks after your surgery at . Pending Studies at Discharge: No Stand-Alone Forms: My [facility] VIP Parking [facility] [place], Opioid Pain Management, Smoking Cessation Medications and DC Order Prescriptions: New aspirin [Ecotrin Low Strength] 81 mg Tablet,Delayed Release (Dr/Ec) 81 mg PO BID Qty: 60 RF: 0 acetaminophen 500 mg Tablet 1,000 mg PO Q8 Qty: 100 RF: 0 oxycodone 5 mg Tablet 5 - 10 mg PO Q4H PRN (Reason: pain) Qty: 30 RF: 0 Continued pantoprazole 20 mg Tablet,Delayed Release (Dr/Ec) 20 mg PO Q OTHER DAY RF: 0 simvastatin 20 mg Tablet 20 mg PO PM RF: 0 gabapentin 300 mg Capsule 300 mg PO TID RF: 0 losartan-hydrochlorothiazide 50-12.5 mg Tablet 1 tab PO QAM RF: 0 duloxetine 60 mg Capsule,Delayed Release(Dr/Ec) 60 mg PO HS RF: 0 Probiotic 1 cap PO QPM RF: 0 cyclobenzaprine 1 dose PO DAILY PRN (Reason: Muscle Spasm) RF: 0 calcium carbonate [Calcium 500] 500 mg calcium (1,250 mg) Tablet 500 mg PO DAILY RF: 0 cholecalciferol (vitamin D3) [Vitamin D3] 1,000 unit Tablet,Chewable 1,000 unit PO DAILY RF: 0 Discontinued acetaminophen [Tylenol Extra Strength] 500 mg Tablet 500 mg PO Q6H PRN (Reason: Pain) RF: 0 etodolac 400 mg Tablet 400 mg PO BID RF: 0 Discharge Orders: Discharge Order (Routine); Ordered 06/27/19 Ordered By: Bradford Covarrubias/Other Patient Handouts: Surgery Prevent DVT After, Replacement Knee Home After, Replacement Knee First Month, Surgery Joint Home Safety Admission Data Admit Date/Time: 06/25/19 10:44 Attending Provider: Héctor Morillo Admit Provider: Héctor Morillo Primary Care Provider: Kyung Yee Other Interventions: Discharge Summary Assessment (RN) Last Done: 06/27/19 10:22 DC Date/Time DO NOT enter until pt leaves facility: 06/27/19 15:20
== END 2019-06-27 15:20 | disposition home health service (06) | DRG 470 ==
LOC: ASU 06:40 → 3E 10:44